=== PATIENT | female | born 1965 ===

== ENCOUNTER 2020-08-26 15:20 | Outpatient (CLI) | payer OTHER | END 2020-08-26 16:07 | disposition home or self-care (01) | LOC: OFIC 805 15:20 | PROVIDERS: ATTEND Otolaryngology Otology & Neurotology | DX: H90.42 Sensorineural hearing loss, unilateral, left ear, with unrestricted hearing on the contralateral side (principal); D33.3 Benign neoplasm of cranial nerves ==